=== PATIENT | male | born 1970 | race Caucasian/White ===

== ENCOUNTER 2018-02-10 04:04 | Inpatient (IN) ==
--- NOTE | 2018-02-10 04:53 | ED ---
HPI General Chief Complaint: Psychiatric Symptoms Stated Complaint: Psych eval Time Seen by Provider: 02/10/18 04:46 History of Present Illness HPI Narrative: Patient presents to the emergency department after a suicide attempt. States there was no known trigger but he wanted to kill himself. They put an exhaust pipe in the car window from 1030-330. Denies any AV hallucinations or headache or chest pain or abdominal pain or vomiting but does report shortness of breath and nausea. Patient brought in under [place] act. Related Data Home Medications Medication Instructions Recorded Confirmed No Known Home Medications 02/10/18 02/10/18 Allergies Allergy/AdvReac Type Severity Reaction Status Date / Time No Known Allergies Allergy Unverified 02/10/18 04:48 Review of Systems ROS: all other systems reviewed are negative [facility] Medical History Medical History Patient denies medical problems (Acute) Social History Social History Substance History: Active Abuse Second Hand Smoke Exposure: Yes Smoking Status: Current every day smoker Tobacco Type: Cigarettes How Often Do You Have a Drink Containing Alcohol: 2 to 4 times a month Recent Travel in [facility] within the Last 8 Weeks: No Recent Out of Country Travel within the Last 8 Weeks: No Immunization History Tetanus Immunization: <5 Years Hx Influenza Vaccine This Season: Yes Exam Narrative Exam Narrative: GENERAL: No acute distress. SKIN: Focused skin assessment warm/dry. HEAD: Atraumatic. Normocephalic. EYES: Pupils equal and round. No scleral icterus. No injection or drainage. ENT: No nasal bleeding or discharge. Mucous membranes pink and moist. NECK: Trachea midline. No JVD. CARDIOVASCULAR: Regular rate and rhythm. No murmur appreciated. RESPIRATORY: No accessory muscle use. Clear to auscultation. Breath sounds equal bilaterally. GASTROINTESTINAL: Abdomen soft, non-tender, nondistended. Hepatic and splenic margins not palpable. MUSCULOSKELETAL: No obvious deformities. No clubbing. No cyanosis. No edema. NEUROLOGICAL: Awake and alert. No obvious cranial nerve deficits. Motor grossly within normal limits. Normal speech. PSYCHIATRIC: Appropriate mood and affect; insight and judgment normal. Course Initial Documented Vital Signs Temperature 98.2 F 02/10/18 04:17 Pulse Rate 60 02/10/18 04:17 Respiratory Rate 20 02/10/18 04:17 Blood Pressure 139/61 02/10/18 04:17 Pulse Oximetry 98 02/10/18 04:17 Last Documented Vital Signs Temperature 97.2 F L 02/13/18 05:47 Pulse Rate 53 L 02/13/18 05:47 Respiratory Rate 17 02/13/18 05:47 Blood Pressure 107/51 L 02/13/18 05:47 Pulse Oximetry 97 02/13/18 05:47 Critical Care Time Critical Care Time: Yes Total Critical Care Time: 30 Attestation: Aggregate critical care time was 30 minutes. Time to perform other separately billable procedures was not included in the critical care time. My time did not include minutes spent treating any other patients simultaneously or on activities that did not directly contribute to the patient's treatment. The services I provided to this patient were to treat and/or prevent clinically significant deterioration that could result in: respiratory failure, , increased morbidity from carbon monoxide poisoning. I provided critical care services requiring my management, as noted below: Chart data review, documentation time, medication orders and management, vital sign assessments/reviewing monitor data, ordering and reviewing lab tests, ordering and interpreting/reviewing x-rays and diagnostic studies, care of the patient and discussion of the patient with the admitting physicians. Medical Decision Making MDM Narrative Medical decision making narrative: Patient presents to the ER after suicidal ideation. Patient placed on oxygen, IV access obtained, and patient was also placed on manager monitoring continuous pulse ox. EKG, labs, potential consulted. Poison control recommends placing patient on oxygen, check an ABG, and the normal psych/suicidal labs, repeat abg 4 hours after the first one (approx 9AM) , and place on 100% O2. Patient placed on a non-rebreather. Patient also given 1L IV NS. Labs show normal CBC, ABG: O2 saturation 86%, carboxyhemoglobin 12.4, elevated CK and alcohol level Head CT: no acute findings 0658: Patient to be signed out to Dr. Walden, the oncoming doctor. Check cxr , repeat abg at 0900, psych evaluation. Medical Screen Exam Complete: Yes Emergency Medical Condition: Yes Differential Diagnosis Differential Diagnosis: Toxic Ingestion, carbon monoxide poisoning Lab Data Result diagrams: 02/10/18 05:05 02/10/18 05:05 Lab Results 02/10/18 02/10/18 02/10/18 Range/Units 04:53 05:05 05:05 WBC 8.4 (4.0-11.0) th/mm3 RBC 4.81 (4.50-5.90) mil/mm3 Hgb 14.9 (13.0-17.0) gm/dL Hct 44.4 (39.0-51.0) % MCV 92.3 (80.0-100.0) fL MCH 31.0 (27.0-34.0) pg MCHC 33.6 (32.0-36.0) % RDW 13.2 (11.6-17.2) % Plt Count 197 (150-450) th/mm3 MPV 9.4 (7.0-11.0) fL Neut % (Auto) 59.8 (16.0-70.0) % Lymph % (Auto) 28.6 (9.0-44.0) % [place] % (Auto) 7.9 (0.0-8.0) % Eos % (Auto) 2.7 (0.0-4.0) % Baso % (Auto) 1.0 (0.0-2.0) % Neut # (Auto) 5.0 (1.8-7.7) th/mm3 Lymph # (Auto) 2.4 (1.0-4.8) th/mm3 [place] # (Auto) 0.7 (0.0-0.9) th/mm3 Eos # (Auto) 0.2 (0.0-0.4) th/mm3 Baso # (Auto) 0.1 (0.0-0.2) th/mm3 WBC Differential . Differential Comment Auto diff final Puncture Site Right radial Patient Temperature 98.6 O2 Saturation 86 L* (90-100) % ABG pH 7.37 L (7.380-7.420) ABG pCO2 41 (38-42) mmHg ABG pO2 189 H (61-120) mmHg ABG HCO3 24 (22-26) mmol/L ABG O2 Content 17.3 (12.0-20.0) Vol % ABG Base Excess -1.0 (-2-2) mmol/L ABG Methemoglobin 0.9 (0-2) % Jose D Test Present Hemoglobin 14.0 (12.0-16.0) G/DL Carboxyhemoglobin 12.4 H* (0-4) % O2 Delivery Device Nasal cannula Liter Flow 3.00 L/M Inspired O2 % Critical Value Yes Sodium 144 (136-145) meq/L Potassium 3.7 (3.5-5.1) meq/L Chloride 111 H (98-107) meq/L Carbon Dioxide 25.3 (21.0-32.0) meq/L Anion Gap 8 (5-15) meq/L BUN 12 (7-18) mg/dL Creatinine 1.14 (0.60-1.30) mg/dL Estimated GFR 69 L (>89) mL/min Random Glucose 95 (74-106) mg/dL Calcium 7.8 L (8.5-10.1) mg/dL Total Bilirubin 0.2 (0.2-1.0) mg/dL AST 27 (15-37) U/L ALT 28 (12-78) U/L Alkaline Phosphatase 69 (45-117) U/L Total Creatine Kinase (39-308) U/L CK-MB (CK-2) (0.5-3.6) ng/mL CK-MB (CK-2) % (0.0-4.0) % Troponin I (0.02-0.05) ng/mL Total Protein 6.7 (6.4-8.2) g/dL Albumin 3.3 L (3.4-5.0) g/dL TSH 1.550 (0.358-3.740) uIU/mL Urine Color (Yellw/Straw) Urine Clarity (Clear) Urine pH (5.0-8.5) Ur Specific [place] (1.002-1.035) Urine Protein (Neg-Trace) mg/dL Urine Glucose (UA) (Negative) mg/dL Urine Ketones (Negative) mg/dL Urine Occult Blood (Negative) Urine Nitrate (Negative) Urine Bilirubin (Negative) Urine Urobilinogen (Less than 2) mg/dL Ur Leukocyte Esterase (Negative) Urine RBC (0-3) /hpf Urine WBC (0-5) /hpf Micro UA Comment Urine Culture Comments Salicylates (2.8-20.0) mg/dL Urine Opiates Screen (Neg) Acetaminophen Less than 2.0 L (10.0-30.0) mcg/mL Ur Barbiturates Screen (Neg) Ur Amphetamines Screen (Neg) U Benzodiazepines Scrn (Neg) Urine Cocaine Screen (Neg) U Cannabinoids Screen (Neg) Serum Alcohol 53 H (0-5) mg/dL 02/10/18 02/10/18 02/10/18 Range/Units 05:05 05:05 08:05 WBC (4.0-11.0) th/mm3 RBC (4.50-5.90) mil/mm3 Hgb (13.0-17.0) gm/dL Hct (39.0-51.0) % MCV (80.0-100.0) fL MCH (27.0-34.0) pg MCHC (32.0-36.0) % RDW (11.6-17.2) % Plt Count (150-450) th/mm3 MPV (7.0-11.0) fL Neut % (Auto) (16.0-70.0) % Lymph % (Auto) (9.0-44.0) % [place] % (Auto) (0.0-8.0) % Eos % (Auto) (0.0-4.0) % Baso % (Auto) (0.0-2.0) % Neut # (Auto) (1.8-7.7) th/mm3 Lymph # (Auto) (1.0-4.8) th/mm3 [place] # (Auto) (0.0-0.9) th/mm3 Eos # (Auto) (0.0-0.4) th/mm3 Baso # (Auto) (0.0-0.2) th/mm3 WBC Differential Differential Comment Puncture Site Patient Temperature O2 Saturation (90-100) % ABG pH (7.380-7.420) ABG pCO2 (38-42) mmHg ABG pO2 (61-120) mmHg ABG HCO3 (22-26) mmol/L ABG O2 Content (12.0-20.0) Vol % ABG Base Excess (-2-2) mmol/L ABG Methemoglobin (0-2) % Jose D Test Hemoglobin (12.0-16.0) G/DL Carboxyhemoglobin (0-4) % O2 Delivery Device Liter Flow L/M Inspired O2 % Critical Value Sodium (136-145) meq/L Potassium (3.5-5.1) meq/L Chloride (98-107) meq/L Carbon Dioxide (21.0-32.0) meq/L Anion Gap (5-15) meq/L BUN (7-18) mg/dL Creatinine (0.60-1.30) mg/dL Estimated GFR (>89) mL/min Random Glucose (74-106) mg/dL Calcium (8.5-10.1) mg/dL Total Bilirubin (0.2-1.0) mg/dL AST (15-37) U/L ALT (12-78) U/L Alkaline Phosphatase (45-117) U/L Total Creatine Kinase 326 H (39-308) U/L CK-MB (CK-2) 1.3 (0.5-3.6) ng/mL CK-MB (CK-2) % 0.4 (0.0-4.0) % Troponin I Less than 0.02 L (0.02-0.05) ng/mL Total Protein (6.4-8.2) g/dL Albumin (3.4-5.0) g/dL TSH (0.358-3.740) uIU/mL Urine Color (Yellw/Straw) Urine Clarity (Clear) Urine pH (5.0-8.5) Ur Specific [place] (1.002-1.035) Urine Protein (Neg-Trace) mg/dL Urine Glucose (UA) (Negative) mg/dL Urine Ketones (Negative) mg/dL Urine Occult Blood (Negative) Urine Nitrate (Negative) Urine Bilirubin (Negative) Urine Urobilinogen (Less than 2) mg/dL Ur Leukocyte Esterase (Negative) Urine RBC (0-3) /hpf Urine WBC (0-5) /hpf Micro UA Comment Urine Culture Comments Salicylates 4.1 (2.8-20.0) mg/dL Urine Opiates Screen Neg (Neg) Acetaminophen (10.0-30.0) mcg/mL Ur Barbiturates Screen Neg (Neg) Ur Amphetamines Screen Neg (Neg) U Benzodiazepines Scrn Neg (Neg) Urine Cocaine Screen Neg (Neg) U Cannabinoids Screen Pos H (Neg) Serum Alcohol (0-5) mg/dL 02/10/18 02/10/18 Range/Units 08:05 09:10 WBC (4.0-11.0) th/mm3 RBC (4.50-5.90) mil/mm3 Hgb (13.0-17.0) gm/dL Hct (39.0-51.0) % MCV (80.0-100.0) fL MCH (27.0-34.0) pg MCHC (32.0-36.0) % RDW (11.6-17.2) % Plt Count (150-450) th/mm3 MPV (7.0-11.0) fL Neut % (Auto) (16.0-70.0) % Lymph % (Auto) (9.0-44.0) % [place] % (Auto) (0.0-8.0) % Eos % (Auto) (0.0-4.0) % Baso % (Auto) (0.0-2.0) % Neut # (Auto) (1.8-7.7) th/mm3 Lymph # (Auto) (1.0-4.8) th/mm3 [place] # (Auto) (0.0-0.9) th/mm3 Eos # (Auto) (0.0-0.4) th/mm3 Baso # (Auto) (0.0-0.2) th/mm3 WBC Differential Differential Comment Puncture Site Right radial Patient Temperature 98.6 O2 Saturation 95 (90-100) % ABG pH 7.42 (7.380-7.420) ABG pCO2 40 (38-42) mmHg ABG pO2 115 (61-120) mmHg ABG HCO3 25 (22-26) mmol/L ABG O2 Content 18.1 (12.0-20.0) Vol % ABG Base Excess 1.4 (-2-2) mmol/L ABG Methemoglobin 1.0 (0-2) % Jose D Test Present Hemoglobin 13.4 (12.0-16.0) G/DL Carboxyhemoglobin 2.4 (0-4) % O2 Delivery Device Room air Liter Flow L/M Inspired O2 21 % Critical Value No Sodium (136-145) meq/L Potassium (3.5-5.1) meq/L Chloride (98-107) meq/L Carbon Dioxide (21.0-32.0) meq/L Anion Gap (5-15) meq/L BUN (7-18) mg/dL Creatinine (0.60-1.30) mg/dL Estimated GFR (>89) mL/min Random Glucose (74-106) mg/dL Calcium (8.5-10.1) mg/dL Total Bilirubin (0.2-1.0) mg/dL AST (15-37) U/L ALT (12-78) U/L Alkaline Phosphatase (45-117) U/L Total Creatine Kinase (39-308) U/L CK-MB (CK-2) (0.5-3.6) ng/mL CK-MB (CK-2) % (0.0-4.0) % Troponin I (0.02-0.05) ng/mL Total Protein (6.4-8.2) g/dL Albumin (3.4-5.0) g/dL TSH (0.358-3.740) uIU/mL Urine Color Yellow (Yellw/Straw) Urine Clarity Clear (Clear) Urine pH 6.0 (5.0-8.5) Ur Specific [place] 1.012 (1.002-1.035) Urine Protein Negative (Neg-Trace) mg/dL Urine Glucose (UA) Negative (Negative) mg/dL Urine Ketones Negative (Negative) mg/dL Urine Occult Blood Small H (Negative) Urine Nitrate Negative (Negative) Urine Bilirubin Negative (Negative) Urine Urobilinogen Less than 2 (Less than 2) mg/dL Ur Leukocyte Esterase Negative (Negative) Urine RBC 2 (0-3) /hpf Urine WBC 2 (0-5) /hpf Micro UA Comment Culture not ind Urine Culture Comments Culture not ind Salicylates (2.8-20.0) mg/dL Urine Opiates Screen (Neg) Acetaminophen (10.0-30.0) mcg/mL Ur Barbiturates Screen (Neg) Ur Amphetamines Screen (Neg) U Benzodiazepines Scrn (Neg) Urine Cocaine Screen (Neg) U Cannabinoids Screen (Neg) Serum Alcohol (0-5) mg/dL Imaging Data Radiologist's impression: Head CT 02/10/18 05:32 CONCLUSION: No acute abnormality. . Chest X-Ray 02/10/18 06:57 CONCLUSION: No acute cardiopulmonary abnormality is identified. ECG Data Attestation: I personally reviewed and interpreted this ECG as follows: (Sinus bradycardia, rate 52, normal axis, T-wave inversion in V1 and V2) Discharge Plan Discharge Disposition Patient Disposition: 30 Still Patient Discharge Condition Condition: Stable Discharge Details Diagnosis: Suicide attempt, Carbon monoxide poisoning Physicians Team ED Provider: Ghislaine Pizarro Primary Care Provider: Primary Care Hannah Felder Attending Provider: Anthony Harrison Discharge Interventions Interventions: ED Discharge Assessment Last Done: 02/10/18 16:41 Status ED Status: Left Department Discharge Information Discharge Date/Time: 02/10/18 16:42
[2018-02-10 05:07] LABS: ABG PCO2 41 mmHg (38-42); ABG PO2 189 mmHg (61-120)
[2018-02-10 05:12] LABS: Baso # (Auto) 0.1 th/mm3 (0.0-0.2); Eos # (Auto) 0.2 th/mm3 (0.0-0.4); Eos % (Auto) 2.7 % (0.0-4.0); Hematocrit 44.4 % (39.0-51.0); Hemoglobin 14.9 gm/dL (13.0-17.0); Lymph # (Auto) 2.4 th/mm3 (1.0-4.8); Lymph % (Auto) 28.6 % (9.0-44.0); Mean Corpuscular HGB Conc 33.6 % (32.0-36.0); Mean Corpuscular Volume 92.3 fL (80.0-100.0); Mean Platelet Volume 9.4 fL (7.0-11.0); Mono # (Auto) 0.7 th/mm3 (0.0-0.9); Mono % (Auto) 7.9 % (0.0-8.0); Neut % (Auto) 59.8 % (16.0-70.0); Platelet Count 197 th/mm3 (150-450); Red Blood Count 4.81 mil/mm3 (4.50-5.90); Red Cell Distribution Width 13.2 % (11.6-17.2); White Blood Count 8.4 th/mm3 (4.0-11.0)
[2018-02-10 05:39] LABS: Alanine Aminotransferase 28 U/L (12-78); Albumin 3.3 g/dL (3.4-5.0); Anion Gap 8 meq/L (5-15); Aspartate Aminotransferase 27 U/L (15-37); Blood Urea Nitrogen 12 mg/dL (7-18); Calcium 7.8 mg/dL (8.5-10.1); Carbon Dioxide 25.3 meq/L (21.0-32.0); Chloride 111 meq/L (98-107); Glomerular Filtration Rate 69 mL/min (>89); Glucose,Random 95 mg/dL (74-106); Potassium 3.7 meq/L (3.5-5.1); Sodium 144 meq/L (136-145)
[2018-02-10 05:42] LABS: Creatine Kinase 326 U/L (39-308)
[2018-02-10 05:49] LABS: Alcohol 53 mg/dL (0-5); Alkaline Phosphatase 69 U/L (45-117); Total Protein 6.7 g/dL (6.4-8.2)
[2018-02-10] MEDS ORDERED: Sod Chloride 0.9% Inj 1,000 ML IV.SIG ONE (05:49)
[2018-02-10 05:54] LABS: CKMB Percent 0.4 % (0.0-4.0); Creatine Kinase MB 1.3 ng/mL (0.5-3.6)
--- NOTE | 2018-02-10 06:34 | CT ---
EXAM DATE: 02/10/2018 6:20 AM EDT AGE/SEX: 47 years / Male INDICATIONS: Altered mental status. CLINICAL DATA: This is the patient's initial encounter. Patient reports that signs and symptoms have been present for 1 day and indicates a pain score of Nonresponsive. MEDICAL/SURGICAL HISTORY: None. None. RADIATION DOSE: 44.12 CTDI (mGy) COMPARISON: No prior exams available for comparison. TECHNIQUE: CT of the head without contrast. Using automated exposure control and adjustment of the mA and/or kV according to patient size, radiation dose was kept as low as reasonably achievable to ob tain optimal diagnostic quality images. DICOM format image data is available electronically for revi ew and comparison. FINDINGS: Cerebrum: The ventricles are normal for age. No evidence of midline shift, mass lesion, hemorrhage or acute infarction. No extraaxial fluid collections are seen. Posterior Fossa: The cerebellum and brainstem are intact. The 4th ventricle is midline. The cerebe llopontine angle is unremarkable. Extracranial: The visualized portion of the orbits is intact. Skull: The calvaria is intact. No evidence of skull fracture. CONCLUSION: No acute abnormality. . Electronically signed by: Bro Gonzales MD 02/10/2018 6:32 AM EDT
--- NOTE | 2018-02-10 07:33 | XR ---
EXAM DATE: 02/10/2018 7:18 AM EDT AGE/SEX: 47 years / Male INDICATIONS: Shortness of breath. CLINICAL DATA: This is the patient's initial encounter. Patient reports that signs and symptoms have been present for 1 day and indicates a pain score of 0/10. MEDICAL/SURGICAL HISTORY: . Patient states he tried to commit suicide last night. None. COMPARISON: No prior exams available for comparison. FINDINGS: Portable AP view of the chest demonstrates a normal-sized cardiac silhouette. No effusion, consolidat ion, or pneumothorax is identified. The bones and soft tissues demonstrate no acute finding. EKG line s overlie the patient. CONCLUSION: No acute cardiopulmonary abnormality is identified. Electronically signed by: Bro Lehman MD 02/10/2018 7:32 AM EDT
[2018-02-10 08:27] LABS: Bilirubin,Urine Negative (Negative); Clarity,Urine Clear (Clear); Color,Urine Yellow (Yellw/Straw); Glucose,Urine (UA) Negative (Negative); Leukocyte Esterase,Urine Negative (Negative); Nitrite,Urine Negative (Negative); Specific Gravity,Urine 1.012 (1.002-1.035)
[2018-02-10 08:33] LABS: Amphetamine Screen,Urine Neg (Neg); Barbiturate Screen,Urine Neg (Neg); Cannabinoid Screen,Urine Pos (Neg); Cocaine Screen,Urine Neg (Neg)
[2018-02-10 08:39] LABS: Opiate Screen,Urine Neg (Neg)
[2018-02-10 09:26] LABS: ABG Base Excess 1.4 mmol/L (-2-2); ABG PCO2 40 mmHg (38-42); ABG PO2 115 mmHg (61-120)
[2018-02-10] MEDS ORDERED: Haloperidol Inj 5 MG/ML Ampul ONE (13:00)
[2018-02-10] MEDS ORDERED: Haloperidol Inj 5 MG/ML Ampul IM ONE ×2 (13:01)
--- NOTE | 2018-02-10 13:23 | ED ---
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 Sweeney act states, "Ramon had a water hose connected to the vehicle exhaust. He called family and told him goodbye. When deputies found him he was not conscious. Patient states that he drank a lot of beer and this was not thinking and that is why he connected a hose to the vehicles exhaust. His alcohol level on arrival was 53. UDS is positive for marijuana. Chart reviewed and discussed with nursing staff. Patient is in room J108 of the emergency department. He is angry, combative, kicking the door and yelling. He continuously repeats, "24 hours of being here is over get me the fuck out of here." Patient is alert and oriented 4, motor and gait is normal. No abnormal thoughts. Insight and judgment is poor. Mood is angry and affect is confrontational. Unable to determine recent and remote memory due to his lack of cooperation. Social/Family/Educ : x 10 years. Daugther who is 22 and son who is 20 and they both live in [place]. He has a sister who he called yesterday when he connected the water hose to the vehicle. 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 No service. No prison or custodial in his past. No weapons in the home. At 1300 on 02/10/18 patient's behavior escalated. He would not cooperate with staff. He started to kick the door and made several attempts to escape. Patient was advised that if his behavior continued we would medicate him. A code dorothy was called as patient became more confrontational. He was medication with Haldol, Ativan and Benadryl. Patient is at moderate risk for decompensation. He will be admitted to inpatient locked area for further evaluation and treatment. Dx: Suicidal Attempt (Ping [place]) - Related Data Home Medications Medication Instructions Recorded Confirmed No Known Home Medications 02/10/18 02/10/18 Allergies Allergy/AdvReac Type Severity Reaction Status Date / Time No Known Allergies Allergy Unverified 02/10/18 04:48 Review of Systems All other systems reviewed negative except as stated in HPI [facility] - History History Provided By: Patient, Law Enforcement - Medical History Medical History: Medical History (Last Updated 02/10/18 @ 04:19 by Zita Jennings) Patient denies medical problems - Tobacco History Second Hand Smoke Exposure: Yes Tobacco Use In Past 30 Days: Yes Smoking Status: Current every day smoker Tobacco Type: Cigarettes - Alcohol History How Often Do You Have a Drink Containing Alcohol: 2 to 4 times a month - Substance Use History Substance History: Active Abuse - Substance Use Type Marijuana Status: Active Route Used: Inhalation - Travel History Recent Travel in the [facility] Within the Last 8 Weeks: No Recent Travel Out of the Country Within the Last 8 Weeks: No - Immunization History Tetanus Immunization: <5 Years Hx Influenza Vaccine This Season: Yes Psychiatric History - Psychiatric History Psychiatric Treatment History: Denies Previous Treatment - Psychiatric History Patient has not been under psychiatric care in the past. (Ping [place]) Physical Exam - General Limitations: no limitations General appearance: alert - Head Head exam: atraumatic - Eye Eye exam: Present: normal appearance - ENT ENT exam: Present: normal exam - Neck Neck exam: Present: normal inspection Mental Status Examination Appearance: Appropriate, Other (electrician front - dirty hands ) Consciousness: Alert, Other (loud, foul language, confrontational) Orientation: x4 Motor Activity: Normal gait Speech: Unremarkable Language: Perseveration (Yelling " I did not try to kill myself." ) Fund of Knowledge: Adequate Attention and Concentration: Easily distracted Memory: Unremarkable Mood: Angry Affect: Other (confrontational , violent ) Thought Process & Associations: Linear Thought Content: Preoccupations (with being discharged. ) Hallucination Type: None Delusion Type: None Suicidal Ideation: No Suicidal Plan: No Suicidal Intention: No Homicidal Ideation: No Homicidal Plan: No Homicidal Intention: No Insight: Poor Judgment: Impulsive Initial Documented Vital Signs Temperature 98.2 F 02/10/18 04:17 Pulse Rate 60 02/10/18 04:17 Respiratory Rate 20 02/10/18 04:17 Blood Pressure 139/61 02/10/18 04:17 Pulse Oximetry 98 02/10/18 04:17 Last Documented Vital Signs Temperature 98.0 F 02/10/18 04:21 Pulse Rate 76 02/10/18 07:17 Respiratory Rate 18 02/10/18 07:17 Blood Pressure 141/75 H 02/10/18 07:17 Pulse Oximetry 100 02/10/18 07:17 MDM - Psych - Diagnosis (1) Suicide attempt Status: Acute - Differential Diagnosis Likely: depression - Medical Records Attestation: I reviewed the patient's medical records. - Lab Data Attestation: I reviewed the patient's lab results. Result diagrams: 02/10/18 05:05 02/10/18 05:05 - MDM Narrative Medical decision making narrative: Patient is a 47-year-old male who was placed under Sweeney act by [facility]'s department. Patient placed a water hose and connected to the vehicle exhaust. He called his family to tell them he was saying goodbye. The deputies found and he was not conscious. Patient's carboxyhemoglobin was monitored in the ER and they feel at this point that he is medically stable. Patient was transferred from the emergency room to [facility]. He displayed a quite a bit of anger and became escalated. Efforts to hold a conversation with him were unsuccessful. Efforts to answers questions were unsuccessful. Patient began kicking the door that exits the unit and slamming the doors to the individual rooms. A code garza was called and patient was administered an emergency treatment med. Patient is at moderate risk for self-harm or harming others. Will admit patient to inpatient locked unit for further evaluation and treatment. (Ping [place]) - Lab Data Lab Results 02/10/18 02/10/18 02/10/18 Range/Units 04:53 05:05 05:05 WBC 8.4 (4.0-11.0) th/mm3 RBC 4.81 (4.50-5.90) mil/mm3 Hgb 14.9 (13.0-17.0) gm/dL Hct 44.4 (39.0-51.0) % MCV 92.3 (80.0-100.0) fL MCH 31.0 (27.0-34.0) pg MCHC 33.6 (32.0-36.0) % RDW 13.2 (11.6-17.2) % Plt Count 197 (150-450) th/mm3 MPV 9.4 (7.0-11.0) fL Neut % (Auto) 59.8 (16.0-70.0) % Lymph % (Auto) 28.6 (9.0-44.0) % [place] % (Auto) 7.9 (0.0-8.0) % Eos % (Auto) 2.7 (0.0-4.0) % Baso % (Auto) 1.0 (0.0-2.0) % Neut # (Auto) 5.0 (1.8-7.7) th/mm3 Lymph # (Auto) 2.4 (1.0-4.8) th/mm3 [place] # (Auto) 0.7 (0.0-0.9) th/mm3 Eos # (Auto) 0.2 (0.0-0.4) th/mm3 Baso # (Auto) 0.1 (0.0-0.2) th/mm3 WBC Differential . Differential Comment Auto diff final Puncture Site Right radial Patient Temperature 98.6 O2 Saturation 86 L* (90-100) % ABG pH 7.37 L (7.380-7.420) ABG pCO2 41 (38-42) mmHg ABG pO2 189 H (61-120) mmHg ABG HCO3 24 (22-26) mmol/L ABG O2 Content 17.3 (12.0-20.0) Vol % ABG Base Excess -1.0 (-2-2) mmol/L ABG Methemoglobin 0.9 (0-2) % Jose D Test Present Hemoglobin 14.0 (12.0-16.0) G/DL Carboxyhemoglobin 12.4 H* (0-4) % O2 Delivery Device Nasal cannula Liter Flow 3.00 L/M Inspired O2 % Critical Value Yes Sodium 144 (136-145) meq/L Potassium 3.7 (3.5-5.1) meq/L Chloride 111 H (98-107) meq/L Carbon Dioxide 25.3 (21.0-32.0) meq/L Anion Gap 8 (5-15) meq/L BUN 12 (7-18) mg/dL Creatinine 1.14 (0.60-1.30) mg/dL Estimated GFR 69 L (>89) mL/min Random Glucose 95 (74-106) mg/dL Calcium 7.8 L (8.5-10.1) mg/dL Total Bilirubin 0.2 (0.2-1.0) mg/dL AST 27 (15-37) U/L ALT 28 (12-78) U/L Alkaline Phosphatase 69 (45-117) U/L Total Creatine Kinase (39-308) U/L CK-MB (CK-2) (0.5-3.6) ng/mL CK-MB (CK-2) % (0.0-4.0) % Troponin I (0.02-0.05) ng/mL Total Protein 6.7 (6.4-8.2) g/dL Albumin 3.3 L (3.4-5.0) g/dL TSH 1.550 (0.358-3.740) uIU/mL Urine Color (Yellw/Straw) Urine Clarity (Clear) Urine pH (5.0-8.5) Ur Specific Walker (1.002-1.035) Urine Protein (Neg-Trace) mg/dL Urine Glucose (UA) (Negative) mg/dL Urine Ketones (Negative) mg/dL Urine Occult Blood (Negative) Urine Nitrate (Negative) Urine Bilirubin (Negative) Urine Urobilinogen (Less than 2) mg/dL Ur Leukocyte Esterase (Negative) Urine RBC (0-3) /hpf Urine WBC (0-5) /hpf Micro UA Comment Urine Culture Comments Salicylates (2.8-20.0) mg/dL Urine Opiates Screen (Neg) Acetaminophen Less than 2.0 L (10.0-30.0) mcg/mL Ur Barbiturates Screen (Neg) Ur Amphetamines Screen (Neg) U Benzodiazepines Scrn (Neg) Urine Cocaine Screen (Neg) U Cannabinoids Screen (Neg) Serum Alcohol 53 H (0-5) mg/dL 02/10/18 02/10/18 02/10/18 Range/Units 05:05 05:05 08:05 WBC (4.0-11.0) th/mm3 RBC (4.50-5.90) mil/mm3 Hgb (13.0-17.0) gm/dL Hct (39.0-51.0) % MCV (80.0-100.0) fL MCH (27.0-34.0) pg MCHC (32.0-36.0) % RDW (11.6-17.2) % Plt Count (150-450) th/mm3 MPV (7.0-11.0) fL Neut % (Auto) (16.0-70.0) % Lymph % (Auto) (9.0-44.0) % [place] % (Auto) (0.0-8.0) % Eos % (Auto) (0.0-4.0) % Baso % (Auto) (0.0-2.0) % Neut # (Auto) (1.8-7.7) th/mm3 Lymph # (Auto) (1.0-4.8) th/mm3 [place] # (Auto) (0.0-0.9) th/mm3 Eos # (Auto) (0.0-0.4) th/mm3 Baso # (Auto) (0.0-0.2) th/mm3 WBC Differential Differential Comment Puncture Site Patient Temperature O2 Saturation (90-100) % ABG pH (7.380-7.420) ABG pCO2 (38-42) mmHg ABG pO2 (61-120) mmHg ABG HCO3 (22-26) mmol/L ABG O2 Content (12.0-20.0) Vol % ABG Base Excess (-2-2) mmol/L ABG Methemoglobin (0-2) % Jose D Test Hemoglobin (12.0-16.0) G/DL Carboxyhemoglobin (0-4) % O2 Delivery Device Liter Flow L/M Inspired O2 % Critical Value Sodium (136-145) meq/L Potassium (3.5-5.1) meq/L Chloride (98-107) meq/L Carbon Dioxide (21.0-32.0) meq/L Anion Gap (5-15) meq/L BUN (7-18) mg/dL Creatinine (0.60-1.30) mg/dL Estimated GFR (>89) mL/min Random Glucose (74-106) mg/dL Calcium (8.5-10.1) mg/dL Total Bilirubin (0.2-1.0) mg/dL AST (15-37) U/L ALT (12-78) U/L Alkaline Phosphatase (45-117) U/L Total Creatine Kinase 326 H (39-308) U/L CK-MB (CK-2) 1.3 (0.5-3.6) ng/mL CK-MB (CK-2) % 0.4 (0.0-4.0) % Troponin I Less than 0.02 L (0.02-0.05) ng/mL Total Protein (6.4-8.2) g/dL Albumin (3.4-5.0) g/dL TSH (0.358-3.740) uIU/mL Urine Color (Yellw/Straw) Urine Clarity (Clear) Urine pH (5.0-8.5) Ur Specific Walker (1.002-1.035) Urine Protein (Neg-Trace) mg/dL Urine Glucose (UA) (Negative) mg/dL Urine Ketones (Negative) mg/dL Urine Occult Blood (Negative) Urine Nitrate (Negative) Urine Bilirubin (Negative) Urine Urobilinogen (Less than 2) mg/dL Ur Leukocyte Esterase (Negative) Urine RBC (0-3) /hpf Urine WBC (0-5) /hpf Micro UA Comment Urine Culture Comments Salicylates 4.1 (2.8-20.0) mg/dL Urine Opiates Screen Neg (Neg) Acetaminophen (10.0-30.0) mcg/mL Ur Barbiturates Screen Neg (Neg) Ur Amphetamines Screen Neg (Neg) U Benzodiazepines Scrn Neg (Neg) Urine Cocaine Screen Neg (Neg) U Cannabinoids Screen Pos H (Neg) Serum Alcohol (0-5) mg/dL 02/10/18 02/10/18 Range/Units 08:05 09:10 WBC (4.0-11.0) th/mm3 RBC (4.50-5.90) mil/mm3 Hgb (13.0-17.0) gm/dL Hct (39.0-51.0) % MCV (80.0-100.0) fL MCH (27.0-34.0) pg MCHC (32.0-36.0) % RDW (11.6-17.2) % Plt Count (150-450) th/mm3 MPV (7.0-11.0) fL Neut % (Auto) (16.0-70.0) % Lymph % (Auto) (9.0-44.0) % [place] % (Auto) (0.0-8.0) % Eos % (Auto) (0.0-4.0) % Baso % (Auto) (0.0-2.0) % Neut # (Auto) (1.8-7.7) th/mm3 Lymph # (Auto) (1.0-4.8) th/mm3 [place] # (Auto) (0.0-0.9) th/mm3 Eos # (Auto) (0.0-0.4) th/mm3 Baso # (Auto) (0.0-0.2) th/mm3 WBC Differential Differential Comment Puncture Site Right radial Patient Temperature 98.6 O2 Saturation 95 (90-100) % ABG pH 7.42 (7.380-7.420) ABG pCO2 40 (38-42) mmHg ABG pO2 115 (61-120) mmHg ABG HCO3 25 (22-26) mmol/L ABG O2 Content 18.1 (12.0-20.0) Vol % ABG Base Excess 1.4 (-2-2) mmol/L ABG Methemoglobin 1.0 (0-2) % Jose D Test Present Hemoglobin 13.4 (12.0-16.0) G/DL Carboxyhemoglobin 2.4 (0-4) % O2 Delivery Device Room air Liter Flow L/M Inspired O2 21 % Critical Value No Sodium (136-145) meq/L Potassium (3.5-5.1) meq/L Chloride (98-107) meq/L Carbon Dioxide (21.0-32.0) meq/L Anion Gap (5-15) meq/L BUN (7-18) mg/dL Creatinine (0.60-1.30) mg/dL Estimated GFR (>89) mL/min Random Glucose (74-106) mg/dL Calcium (8.5-10.1) mg/dL Total Bilirubin (0.2-1.0) mg/dL AST (15-37) U/L ALT (12-78) U/L Alkaline Phosphatase (45-117) U/L Total Creatine Kinase (39-308) U/L CK-MB (CK-2) (0.5-3.6) ng/mL CK-MB (CK-2) % (0.0-4.0) % Troponin I (0.02-0.05) ng/mL Total Protein (6.4-8.2) g/dL Albumin (3.4-5.0) g/dL TSH (0.358-3.740) uIU/mL Urine Color Yellow (Yellw/Straw) Urine Clarity Clear (Clear) Urine pH 6.0 (5.0-8.5) Ur Specific Walker 1.012 (1.002-1.035) Urine Protein Negative (Neg-Trace) mg/dL Urine Glucose (UA) Negative (Negative) mg/dL Urine Ketones Negative (Negative) mg/dL Urine Occult Blood Small H (Negative) Urine Nitrate Negative (Negative) Urine Bilirubin Negative (Negative) Urine Urobilinogen Less than 2 (Less than 2) mg/dL Ur Leukocyte Esterase Negative (Negative) Urine RBC 2 (0-3) /hpf Urine WBC 2 (0-5) /hpf Micro UA Comment Culture not ind Urine Culture Comments Culture not ind Salicylates (2.8-20.0) mg/dL Urine Opiates Screen (Neg) Acetaminophen (10.0-30.0) mcg/mL Ur Barbiturates Screen (Neg) Ur Amphetamines Screen (Neg) U Benzodiazepines Scrn (Neg) Urine Cocaine Screen (Neg) U Cannabinoids Screen (Neg) Serum Alcohol (0-5) mg/dL
[2018-02-10] MEDS ORDERED: Acetaminophen 325 MG Tablet PO PRN (13:25)
[2018-02-10] MEDS ORDERED: Aluminum/Magnesium/Simethacone Susp 30 ML UDC PO PRN (13:25)
--- NOTE | 2018-02-10 16:02 | ECG ---
Date Performed: 02/10/2018 Time Performed: 04:44:17 PTAGE: 47 years EKG: SINUS BRADYCARDIA BORDERLINE ECG NO PREVIOUS TRACING DOCTOR: Jordan Arthur Interpretating Date/Time 02/10/2018 16:01:47
--- NOTE | 2018-02-11 10:49 | P.HPPSY ---
Provisional Diagnosis Admission Date: February 10, 2018 13:24 [place] I.: 1. Adjustment disorder with mixed disturbance of emotions and conduct Rule out mood disorder, behavioral disturbance in the setting of alcohol use disorder and/or personality disorder 2. Alcohol use, rule out use disorder 3. Cannabis abuse [place] II.: 1. Antisocial personality traits Competence Certification of Person's Competence To Provide Express and Informed Consent I have personally examined Ramon Quinteros, a person being served at [facility] on, February 11, 2018 1040. Express and informed consent means consent voluntarily given in writing, by a competent person, after sufficient explanation and disclosure of the subject matter involved to enable the person to make a knowing and willful decision without any element of force, fraud, deceit, duress, or other form of constraint or coercion. This person is 18 years of age or older, is not now known to be incompetent to consent to treatment with a guardian advocate, and does not have a health care surrogate or proxy currently making medical treatment decisions. I have found this person to be one of the following: [] Competent to provide express and informed consent, as defined above, for voluntary admission to this facility and is competent to provide express and informed consent for treatment. He/she has the consistent capacity to make well reasoned, willful, and knowing decisions concerning his or her medical or mental health treatment. The person fully and consistently understands the purpose of the admission for examination/placement and is fully capable of personally exercising all rights assured under [place] [] Incompetent to provide express and informed consent to voluntary admission, and this is incompetent to provide express and informed consent to treatment. The person must be transferred to involuntary status and a petition for a guardian advocate filed with the Circuit Court. [X] Refusing to provide express and informed consent to voluntary admission but is competent to provide express and informed consent for treatment. The person must be discharged or transferred to involuntary status. Form shall be completed within 24 hours of a person's arrival at the receiving facility and filed in the clinical record of each person: 1. Admitted on a voluntary basis 2. Permitted to provide express and informed consent to his/her own treatment 3. Allowed to transfer from involuntary to voluntary status 4. Prior to permitting a person to consent to his or her own treatment after having been previously found incompetent to consent to treatment. History of Present Illness Capacity: Has capacity (To consent for medications) Chief Complaint: Sweeney act History of Present Illness: Mr. Quinteros is a 47-year-old male with no reported past psychiatric history who presents under a Sweeney act by [facility]'s office alleging that the patient was found with a hose connected to his vehicle exhaust. He allegedly called family and told them goodbye. Patient was evaluated by the psychiatric nurse practitioner in the ED. patient was apparently fairly agitated in the ED and required Haldol, Ativan and Benadryl. Reviewing the electronic medical record, I see no previous psychiatric contact within our system. Patient seen and examined with nurse and counselor. Chart reviewed. Case discussed with nursing staff who reports patient related that he had a history of previous battery charges and was jailed in the mid 1999s. On my examination today, the patient presents with antisocial personality traits. He is clinically sober. He is vague and somewhat evasive regarding the circumstances of his presentation here. He insists that his presenting suicide attempt was gestural and "for attention." He will not say who his attention he was trying to obtain, nor will he provide any further substantive details regarding his thought process prior to the attempt. He insists that this attempt was entirely secondary to alcohol intoxication. He says that he had his car parked in a very conspicuous area, and he asks whether he would have done so if he had really wanted to hurt himself. Presently, the patient denies any suicidal or homicidal ideation, intent or plan, although it is unclear whether he is reliable to contract for safety. He denies any issues with mood, nor can I elicit any severe depressive or hypomanic/manic symptoms. Affect is somewhat irritable. He denies any audiovisual hallucinations. Denies any command auditory hallucinations to hurt self/others. No delusional material. 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 Remainder of the psychiatric ROS is negative. No acute physical complaints. Past psychiatric history: The patient denies a history of psychiatric diagnosis. He does say that he has seen a psychiatrist in the past as an adolescent. He denies a history of psychiatric admissions or suicide attempts. He denies a history of nonsuicidal self-injurious behavior. He denies a history of violent behavior. Family history: The patient denies a family history of serious mental illness or suicide. Chemical dependency history: The patient reports that he smokes cannabis most days of the week. He says that prior to admission was the first time he had had a drink since 2005. Nurse relates that patient was first jailed in 2005. Social history: The patient reports that he has been staying with a coworker. 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 He is with 2 children, a 22-year-old daughter and a 20-year-old son. He denies any history. Denies any legal history although see above. Denies any access to guns or firearms. He is a [employer]. He denies any history of abuse or mistreatment. Patient does say that we can reach out to his roommate Brandon for collateral information, but it is unclear if we will be able to obtain his telephone number. Counselor will work on this. Past medical history: Patient denies any past medical history. Medications: Patient takes no home medications. Allergies: Patient denies any allergies. - Inpatient Certification I certify that the inpatient services were ordered in accordance with Medicare regulations governing the order. This includes certification that hospital inpatient services are reasonable and necessary and in the case of services not specified as inpatient-only under 42 CFR 419.22(n), that they are appropriately provided as inpatient services in accordance to with the 2-midnight benchmark under 43 CFR 412.3(e) I certify that inpatient psychiatric hospital services are medically necessary. Evaluation and treatment and/or diagnostic testing are expected to improve the patient's condition. The patient needs on a daily basis, active treatment furnished directly by or requiring the supervision of inpatient psychiatric facility personnel. Estimated Total Length of Stay (Days): 3 (2-3) Plans for Post Hospital Care: Not yet determined Review of Systems All other systems reviewed negative except as stated in [facility] - History History Provided By: Medical Record - Medical History Medical History: Medical History (Last Updated 02/10/18 @ 04:19 by Zita Jennings) Patient denies medical problems - Tobacco History Second Hand Smoke Exposure: Yes Tobacco Use In Past 30 Days: Yes Smoking Status: Current every day smoker Tobacco Type: Cigarettes - Alcohol History How Often Do You Have a Drink Containing Alcohol: 2 to 4 times a month - Substance Use History Substance History: Active Abuse - Substance Use Type Marijuana Type: cannabis Status: Active Route Used: Inhalation Comment: refuses to cooperate with admission assessment questions. refuses to sign any consent forms. - Travel History Recent Travel in the [place] Within the Last 8 Weeks: No Recent Travel Out of the Country Within the Last 8 Weeks: No - Immunization History Tetanus Immunization: <5 Years Hx Influenza Vaccine This Season: Yes Quality Measures - Patient Strengths Patient's strengths (minimum of 2): Attending to basic needs. Verbally fluent. Medications and Allergies Active Medications: Active Medications Acetaminophen (Tylenol) 650 mg PO Q4H PRN PRN Reason: Pain 1-5 or Temp >101F Al Hydrox/Mg Hydrox/Simethicone (Mag-Al Plus Susp Liq) 30 ml PO Q6H PRN PRN Reason: DYSPEPSIA Nicotine (Habitrol 21 Mg Patch.24 Hr) 1 patch T-DERMAL DAILY [facility] Last Admin: 02/11/18 08:23 Dose: Not Given Patch Removal (Remove Old Patch) 1 each T-DERMAL DAILY [facility] Last Admin: 02/11/18 08:23 Dose: Not Given Allergies Allergy/AdvReac Type Severity Reaction Status Date / Time No Known Allergies Allergy Unverified 02/10/18 04:48 Home Medications Medication Instructions Recorded Confirmed Type No Known Home Medications 02/10/18 02/10/18 History Results - Labs CBC & Chem 7: 02/10/18 05:05 02/10/18 05:05 Labs: Admission labs reviewed. Significant findings included mildly elevated CK, mildly decreased GFR, and toxicological/alcohol findings. Exam Vital signs: Vital Signs 02/10/18 17:50 Pulse Rate 62 Respiratory Rate 20 Blood Pressure 134/81 Intake & Output 02/10/18 02/11/18 02/11/18 18:59 06:59 18:59 Weight 74.4 kg Other: Weight On Admission 74.4 kg Narrative: Physical examination completed by ED provider. On my examination today, the patient appears to be in no acute physical distress. No signs of intoxication or withdrawal noted. No other motor abnormalities noted. Labs and vital signs reviewed. Mental Status Examination Appearance: Appropriate Consciousness: Alert, Other (loud, foul language, confrontational) Orientation: x4 Motor Activity: Normal gait Speech: Unremarkable Language: Adequate Fund of Knowledge: Adequate Attention and Concentration: Adequate Memory: Unremarkable Mood: Irritable Affect: Irritable Thought Process & Associations: Linear Thought Content: Preoccupations (With discharge) Hallucination Type: None Delusion Type: None Suicidal Ideation: No (Unclear whether patient is reliable to contract for safety) Suicidal Plan: No Suicidal Intention: No Homicidal Ideation: No Homicidal Plan: No Homicidal Intention: No Insight: Poor Judgment: Impulsive Assessment and Plan - Assessment (1) Adjustment disorder with mixed disturbance of emotions and conduct Code(s): F43.25 - Adjustment disorder with mixed disturbance of emotions and conduct Status: Acute (2) Alcohol use Code(s): Z78.9 - Other specified health status Status: Acute (3) Cannabis abuse Code(s): F12.10 - Cannabis abuse, uncomplicated Status: Acute - Plan Plan: 47-year-old male with psychiatric history as detailed above who presents under a Sweeney act by law enforcement after suicide attempt. On my examination today, the patient insists that presenting attempt was gestural and mediated by alcohol use. Although there is a strong likelihood that this report is accurate , it is also possible that attempt was mediated by antisocial personality style and/or underlying mood disorder. It is presently unclear whether the patient represents an ongoing risk for self-harm. Inpatient observation, hopefully augmented with collateral information, will be helpful in this regard. Patient requires psychiatric hospitalization at this time to monitor for any ongoing impairments in safety. Admit inpatient. Patient declines to consent for voluntary admission. Continue to observe under Sweeney act. I have checked with paralegal instructor, and the Sweeney act will 02/13 at 0404. Patient retains capacity to consent for medications. Patient is not interested in any psychotropic medications at this time, and none will be prescribed. CIWA scale with Ativan for the management of any withdrawal. Thiamine and folate. Seizure precautions. Vitals every shift. Counselor to see. Collateral information. Disposition planning. Estimated length of stay: 2-3 days, depending on outcome of observation. Justification for Continued Inpatient Stay: See above Discharge Planning: Pending outcome of observation. Request Healthcare Surrogate/Guardian Advocate?: No
[2018-02-11] MEDS ORDERED: LORazepam 1 MG Tablet PO PRN (10:57)
--- NOTE | 2018-02-11 14:13 | P.CONPSY ---
Provisional Diagnosis Admission Date: February 10, 2018 13:24 [place] I.: 1. Adjustment disorder with mixed disturbance of emotions and conduct Rule out mood disorder, behavioral disturbance in the setting of alcohol use disorder and/or personality disorder 2. Alcohol use, rule out use disorder 3. Cannabis abuse [place] II.: 1. Antisocial personality traits History of Present Illness Service: Psychiatry Primary Care Provider: No Primary Care Physician History of Present Illness: Mr. Quinteros is a 47-year-old male with no reported past psychiatric history who presents under a Sweeney act by [facility]'s office alleging that the patient was found with a hose connected to his vehicle exhaust. He allegedly called family and told them goodbye. Patient was evaluated by the psychiatric nurse practitioner in the ED. patient was apparently fairly agitated in the ED and required Haldol, Ativan and Benadryl. Reviewing the electronic medical record, I see no previous psychiatric contact within our system. Patient seen and examined with nurse and counselor. Chart reviewed. Case discussed with nursing staff who reports patient related that he had a history of previous battery charges and was jailed in the mid 1999s. On my examination today, the patient presents with antisocial personality traits. He is clinically sober. He is vague and somewhat evasive regarding the circumstances of his presentation here. He insists that his presenting suicide attempt was gestural and "for attention." He will not say who his attention he was trying to obtain, nor will he provide any further substantive details regarding his thought process prior to the attempt. He insists that this attempt was entirely secondary to alcohol intoxication. He says that he had his car parked in a very conspicuous area, and he asks whether he would have done so if he had really wanted to hurt himself. Presently, the patient denies any suicidal or homicidal ideation, intent or plan, although it is unclear whether he is reliable to contract for safety. He denies any issues with mood, nor can I elicit any severe depressive or hypomanic/manic symptoms. Affect is somewhat irritable. He denies any audiovisual hallucinations. Denies any command auditory hallucinations to hurt self/others. No delusional material. 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 Remainder of the psychiatric ROS is negative. No acute physical complaints. Patient is a 47-year-old man, seen for second opinion. On psychiatric evaluation the patient is calm, cooperative, he stated that he does not want to continue his hospitalization. He says that this is a misunderstood and he was not trying to commit suicide. He says that he does not remember exactly the details of suicidal attempt, but he was drunk and he is in no was he was doing. Patient minimizes suicide attempt, minimizes depression, he denies suicidal and homicidal ideation, he denies visual and auditory hallucinations Review of Systems Constitutional: Reports anorexia, Denies body ache(s), Denies chills, Denies daytime sleepiness, Denies excessive sweating, Denies fatigue, Denies fever(s), Denies headache(s), Denies increased appetite, Denies lack of energy, Denies malaise, Denies night sweats, Denies weakness, Denies weight gain, Denies weight loss, Denies other PMFSH - History History Provided By: Medical Record - Medical History Medical History: Medical History (Last Updated 02/10/18 @ 04:19 by Zita Jennings) Patient denies medical problems - Tobacco History Second Hand Smoke Exposure: Yes Tobacco Use In Past 30 Days: Yes Smoking Status: Current every day smoker Tobacco Type: Cigarettes - Alcohol History How Often Do You Have a Drink Containing Alcohol: 2 to 4 times a month - Substance Use History Substance History: Active Abuse - Substance Use Type Marijuana Type: cannabis Status: Active Route Used: Inhalation Comment: Patient reports smoking cannabis daily. Patient denies current alcohol abuse. - Travel History Recent Travel in the [facility] Within the Last 8 Weeks: No Recent Travel Out of the Country Within the Last 8 Weeks: No - Immunization History Tetanus Immunization: <5 Years Hx Influenza Vaccine This Season: Yes Medications and Allergies Active Medications: Active Medications Acetaminophen (Tylenol) 650 mg PO Q4H PRN PRN Reason: Pain 1-5 or Temp >101F Al Hydrox/Mg Hydrox/Simethicone (Mag-Al Plus Susp Liq) 30 ml PO Q6H PRN PRN Reason: DYSPEPSIA Flumazenil ([place] Inj) 0.2 mg IV.PUSH Q1M PRN PRN Reason: OVERSEDATION Folic Acid (Folic Acid) 1 mg PO DAILY [facility] Stop: 02/17/18 08:59 Lorazepam (Ativan) 1 mg PO Q4H PRN PRN Reason: for CIWA 8-10 Lorazepam (Ativan) 2 mg PO Q2H PRN PRN Reason: for CIWA 11-14 Lorazepam (Ativan Inj) 2 mg IV.PUSH Q2H PRN PRN Reason: for CIWA 11-14 Lorazepam (Ativan Inj) 2 mg IV.PUSH Q1H PRN PRN Reason: for CIWA 15-20 Lorazepam (Ativan Inj) 2 mg IV.PUSH Q15M PRN PRN Reason: for CIWA > 20 Lorazepam (Ativan Inj) 1 mg IV.PUSH Q4H PRN PRN Reason: for CIWA 8-10 Multivitamins/Minerals (Theragran-M) 1 tab PO DAILY [facility] Stop: 02/17/18 08:59 Nicotine (Habitrol 21 Mg Patch.24 Hr) 1 patch T-DERMAL DAILY [facility] Last Admin: 02/11/18 08:23 Dose: Not Given Patch Removal (Remove Old Patch) 1 each T-DERMAL DAILY [facility] Last Admin: 02/11/18 08:23 Dose: Not Given Thiamine HCl (Vitamin B1) 100 mg PO DAILY [facility] Allergies Allergy/AdvReac Type Severity Reaction Status Date / Time No Known Allergies Allergy Unverified 02/10/18 04:48 Home Medications Medication Instructions Recorded Confirmed Type No Known Home Medications 02/10/18 02/10/18 History Exam Vital signs: Vital Signs 02/10/18 17:50 Pulse Rate 62 Respiratory Rate 20 Blood Pressure 134/81 Intake & Output 02/10/18 02/11/18 02/11/18 18:59 06:59 18:59 Weight 74.4 kg Other: Weight On Admission 74.4 kg Mental Status Examination Appearance: Appropriate Consciousness: Alert, Other (loud, foul language, confrontational) Orientation: x4 Motor Activity: Normal gait Speech: Unremarkable Language: Adequate Fund of Knowledge: Adequate Attention and Concentration: Adequate Memory: Unremarkable Mood: Irritable Affect: Irritable Thought Process & Associations: Linear Thought Content: Preoccupations (With discharge) Hallucination Type: None Delusion Type: None Suicidal Ideation: No (Unclear whether patient is reliable to contract for safety) Suicidal Plan: No Suicidal Intention: No Homicidal Ideation: No Homicidal Plan: No Homicidal Intention: No Insight: Poor Judgment: Impulsive Assessment and Plan - Assessment (1) Adjustment disorder with mixed disturbance of emotions and conduct Code(s): F43.25 - Adjustment disorder with mixed disturbance of emotions and conduct Status: Acute (2) Alcohol use Code(s): Z78.9 - Other specified health status Status: Chronic (3) Cannabis abuse Code(s): F12.10 - Cannabis abuse, uncomplicated Status: Chronic - Plan Plan: I have seen and examined this patient, I have reviewed documentation, I agree and concur with Dr. Harrison assessment and plan. Consult appreciated Justification for Continued Inpatient Stay: Continue admission Request Healthcare Surrogate/Guardian Advocate?: No
[2018-02-12] MEDS: Folic Acid 1 MG Tablet PO SCH (09:03)
[2018-02-12] MEDS: Multivitamin/Minerals Therapeutic Tablet PO SCH (09:03)
[2018-02-12] MEDS ORDERED: Haloperidol Inj 5 MG/ML Ampul IM STA (11:46)
--- NOTE | 2018-02-12 11:48 | P.PNPSY ---
Subjective Chief Complaint: Sweeney act Remarks: Patient seen and examined with nurse. Chart reviewed. Second opinion completed by Dr. Saxena. Case discussed with nursing staff. Patient is reportedly refusing labs and CIWA scale assessment. He told the nurse that his presenting suicide attempts were to seek attention from girlfriend. On my examination today, the patient continues to display extremely prominent antisocial personality traits. He is fixated on discharge. When I discuss collateral information from roommate Hernandez obtained by the counselor to the effect that patient made 2 separate attempts to end his life prior to admission , patient says that the second was because he had been talking with his sister, with whom he has recently been conversing about his mother's passing. He adamantly denies any suicidal ideation now and says he has to leave [facility] to get back to work. He refuses to allow me to contact sister or girlfriend (noting "she might say some stuff to keep me in here," although he insists that this report of hers would be untrue) or anyone else. When he learns that he will not be discharged today, he explodes, slams his door and begins banging on the doors in the [facility] [place]. He threatens this provider personally and also threatens staff generally, saying "someone is gonna fucking go to the ED." A Charles Bermeo was called, and the patient was medicated with Haldol, Ativan and Benadryl IM ETO at my order and placed in seclusion. Before the medications take effect, patient observed on camera pacing and trying to spit on camera in seclusion room. When I evaluate him for [id number] as required within one hour of initiation of restraints, he has calmed somewhat but remains quite volatile. We discuss behavioral expectations and conditions for discharge at a level appropriate to his current level of agitation. No evident side effects from medications. No physical complaints. Vital Signs Temp Pulse Resp BP Pulse Ox 02/12/18 05:41 98.0 F 51 L 16 122/75 99 02/11/18 17:17 98.7 F 72 16 126/75 100 02/11/18 17:00 98 F 84 18 131/91 H 02/11/18 13:00 98.7 F 68 17 139/81 Refused laboratories Review of Systems unobtainable due to mental condition Mental Status Examination Appearance: Appropriate Consciousness: Alert Orientation: x4 Motor Activity: Normal gait Speech: Other (Loud, angry) Language: Other ([place]) Fund of Knowledge: Adequate Attention and Concentration: Adequate Memory: Unremarkable Mood: Angry, Oppositional, Irritable Affect: Irritable, Labile Thought Process & Associations: Linear Thought Content: Preoccupations (With discharge) Hallucination Type: None Delusion Type: None Suicidal Ideation: No Suicidal Plan: No Suicidal Intention: No Homicidal Ideation: Yes (Threats to staff) Homicidal Plan: No Homicidal Intention: No Insight: Poor Judgment: Impulsive Assessment and Plan - Assessment (1) Adjustment disorder with mixed disturbance of emotions and conduct Code(s): F43.25 - Adjustment disorder with mixed disturbance of emotions and conduct Status: Acute (2) Alcohol use Code(s): Z78.9 - Other specified health status Status: Acute (3) Cannabis abuse Code(s): F12.10 - Cannabis abuse, uncomplicated Status: Acute - Plan Plan: Patient's behavior today is most consistent with antisocial personality style, and antisocial PD (along with substance use issues) is the suspected diagnosis. As such, patient is chronically unpredictable with respect to suicide/ violence and is unlikely to derive benefit from extended hospitalization. I did suggest to the patient prior to his explosive outburst that we could consider adding a psychopharmacologic agent for the management of irritability or impulsivity, but he is not interested in any sort of psychotropic medication management. I will retain the patient on the unit today given his outburst and given his current volatility, but we could consider discharge tomorrow if he is able to maintain behavioral control in the interval. Discontinue seclusion once safe to do so. Continue other care as ordered. Justification for Continued Inpatient Stay: Monitoring for impairment in safety. Discharge Planning: Pending further observation Request Healthcare Surrogate/Guardian Advocate?: No
[2018-02-12] MEDS ORDERED: Haloperidol Inj 5 MG/ML Ampul ONE (11:52)
[2018-02-13] MEDS: Folic Acid 1 MG Tablet PO SCH (08:24)
[2018-02-13] MEDS: Multivitamin/Minerals Therapeutic Tablet PO SCH (08:24)
--- NOTE | 2018-02-13 09:21 | P.DSPSY ---
Psychiatry Discharge Summary Inpatient Psychiatric care?: Yes Advance Directives: No Mental Health Advance Directive: No Health Care Proxy: No - Admission Admission Date: February 10, 2018 13:24 - Admission Diagnosis (1) Adjustment disorder with mixed disturbance of emotions and conduct Code(s): F43.25 - Adjustment disorder with mixed disturbance of emotions and conduct (2) Alcohol use Code(s): Z78.9 - Other specified health status (3) Cannabis abuse Code(s): F12.10 - Cannabis abuse, uncomplicated Brief History: Mr. Quinteros is a 47-year-old male with no reported past psychiatric history who presents under a [place] act by [facility]'s office alleging that the patient was found with a hose connected to his vehicle exhaust. He allegedly called family and told them goodbye. Patient was evaluated by the psychiatric nurse practitioner in the ED. patient was apparently fairly agitated in the ED and required Haldol, Ativan and Benadryl. Reviewing the electronic medical record, I see no previous psychiatric contact within our system. Patient seen and examined with nurse and counselor. Chart reviewed. Case discussed with nursing staff who reports patient related that he had a history of previous battery charges and was jailed in the mid 1999s. On my examination today, the patient presents with antisocial personality traits. He is clinically sober. He is vague and somewhat evasive regarding the circumstances of his presentation here. He insists that his presenting suicide attempt was gestural and "for attention." He will not say who his attention he was trying to obtain, nor will he provide any further substantive details regarding his thought process prior to the attempt. He insists that this attempt was entirely secondary to alcohol intoxication. He says that he had his car parked in a very conspicuous area, and he asks whether he would have done so if he had really wanted to hurt himself. Presently, the patient denies any suicidal or homicidal ideation, intent or plan, although it is unclear whether he is reliable to contract for safety. He denies any issues with mood, nor can I elicit any severe depressive or hypomanic/manic symptoms. Affect is somewhat irritable. He denies any audiovisual hallucinations. Denies any command auditory hallucinations to hurt self/others. No delusional material. 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 Remainder of the psychiatric ROS is negative. No acute physical complaints. Past psychiatric history: The patient denies a history of psychiatric diagnosis. He does say that he has seen a psychiatrist in the past as an adolescent. He denies a history of psychiatric admissions or suicide attempts. He denies a history of nonsuicidal self-injurious behavior. He denies a history of violent behavior. Family history: The patient denies a family history of serious mental illness or suicide. Chemical dependency history: The patient reports that he smokes cannabis most days of the week. He says that prior to admission was the first time he had had a drink since 2005. Nurse relates that patient was first jailed in 2005. Social history: The patient reports that he has been staying with a coworker. 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 He is with 2 children, a 22-year-old daughter and a 20-year-old son. He denies any history. Denies any legal history although see above. Denies any access to guns or firearms. He is a [employer]. He denies any history of abuse or mistreatment. Patient does say that we can reach out to his roommate Brandon for collateral information, but it is unclear if we will be able to obtain his telephone number. Counselor will work on this. Past medical history: Patient denies any past medical history. Medications: Patient takes no home medications. Allergies: Patient denies any allergies. Tobacco Use In Past 30 Days: Yes How Often Do You Have a Drink Containing Alcohol: 2 to 4 times a month Hospital Course: Patient was admitted to a locked, inpatient psychiatric unit. Appropriate precautions were in place throughout patient's hospital stay. Patient was seen and examined on the unit by psychiatry and also visited by counselor. Psychotropic medication management was offered to the patient, but he declined initiation of any scheduled psychotropic agents. There was no evidence of any ongoing suicidality on the inpatient unit. The patient displayed prominent antisocial personality traits including impulsivity, irritability, and failure to conform to social norms among others. 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 Alternative diagnoses including but not limited to mood disorder (such a bipolar mixed state), substance induced mood disorder, intermittent explosive disorder, adjustment disorder, psychiatric disorder related to general medical condition were considered as explanations for patient's presenting behavior and conduct on the unit, but in the end antisocial personality style and probable antisocial personality disorder with comorbid substance use issues is considered the most apt and cohesive diagnosis. On the day of discharge: Patient seen and examined with counselor. Chart reviewed. Case discussed with nursing staff. Following patient's outburst yesterday morning, he calmed and was released from seclusion in the early afternoon. He presented no behavioral problem thereafter. Case discussed with counselor who will provide the patient with referrals for outpatient mental health follow-up including anger management counseling as well as chemical dependency evaluation and treatment. On my examination today, the patient apologizes for his behavioral outburst yesterday. He explains that he was simply upset that he was not discharged as he has to get to work in order to fulfill his financial obligations. I endeavored to abstract the irritability and agitation displayed yesterday and use this to mobilize the patient to greater insight into his condition. The patient does concede that he struggles with anger chronically and has observed that it has caused him problems including in his relationship with his girlfriend. Although he does not want to pursue any pharmacologic management for this issue, he does agree that he would benefit from outpatient anger management counseling and agrees to follow- up for this purpose. He also vows to abstain from substances of abuse including alcohol going forward. He denies any suicidal or homicidal ideation, intent or plan presently. I can elicit no depressive or hypomanic/manic symptoms not better explained by his antisocial personality style. He denies any audiovisual hallucinations. I can elicit no delusional material. 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 He has no physical complaints. He is requesting discharge from the inpatient psychiatric unit today. Patient's antisocial personality style, recent attempts at self-harm and substance use issues confer chronic risk for self-harm going forward. However, patient's acute risk factors, including distress in the setting of reported argument with girlfriend and acute alcohol intoxication, have subsided, and the patient seems motivated at present to seek outpatient counseling to manage his anger and insists that he will abstain from substance use going forward. Patient's violence risk assessment largely mirrors the suicide risk assessment with chiefly chronic risk factors including antisocial personality style and substance use issues. Retaining the patient on the inpatient unit further would only serve to agitate and distress him to a greater degree, would be unlikely to yield additional risk reduction, and would likely deter him from seeking psychiatric help in the future. As a consequence, it is felt that the patient has maximized benefit from this inpatient psychiatric hospital stay. He will be discharged today with psychiatric follow-up as arranged by counselor. Patient is also to follow up with primary care. I have supported the patient in his stated desire for abstinence from substances. I have counseled the patient regarding warning signs for need to return to the psychiatric emergency room as part of a general safety plan. - Discharge Discharge Date: 02/13/18 - Discharge Diagnosis (1) Antisocial personality disorder Diagnosis: Principal Code(s): F60.2 - Antisocial personality disorder Status: Suspected (2) Alcohol use Diagnosis: Secondary Code(s): Z78.9 - Other specified health status Status: Chronic (3) Cannabis abuse Diagnosis: Secondary Code(s): F12.10 - Cannabis abuse, uncomplicated Status: Chronic Discharge Disposition: Home - Discharge Instructions Discharge Diet: Regular Diet Activities You Can Perform: Weight Bearing As Tolerat - Discharge Time > 30 minutes Mental Status Examination Appearance: Appropriate Consciousness: Alert Orientation: x4 Motor Activity: Normal gait, Other (No motor abnormalities noted. No signs of withdrawal noted.) Speech: Unremarkable Language: Adequate Fund of Knowledge: Adequate Attention and Concentration: Adequate Memory: Unremarkable Mood: Appropriate Affect: Appropriate Thought Process & Associations: Intact, Logical, Goal directed, Linear Thought Content: Appropriate Hallucination Type: None Delusion Type: None Suicidal Ideation: No Suicidal Plan: No Suicidal Intention: No Homicidal Ideation: No Homicidal Plan: No Homicidal Intention: No Mental Status Exam Remarks: Insight is somewhat improved versus admission although still likely fair to poor. Judgment is chronically impulsive as a consequence of antisocial personality style. Discharge/Advance Care Plan - Results Vital Signs: Last Vital Signs Temp 97.2 F L 02/13/18 05:47 Pulse 53 L 02/13/18 05:47 Resp 17 02/13/18 05:47 BP 107/51 L 02/13/18 05:47 Pulse Ox 97 02/13/18 05:47 Lab Results: Laboratory Results TSH 1.550 uIU/mL (0.358-3.740) 02/10/18 05:05 Urine Culture Comments Culture not ind 02/10/18 08:05 Summary of Procedures: None done. Imaging: ITS Impressions Head CT 02/10/18 05:32 CONCLUSION: No acute abnormality. . Chest X-Ray 02/10/18 06:57 CONCLUSION: No acute cardiopulmonary abnormality is identified. Pending Results: None - Medications Number of antipsychotic medications at discharge: 0 - Discharge Care Plan Goals to Promote Your Health: * To prevent worsening of your condition and complications * To maintain your health at the optimal level Directions to Meet Your Goals: Take your medications as prescribed Follow your dietary instruction Follow activity as directed Keep your appointments as scheduled Take your immunizations and boosters as scheduled If your symptoms worsen call your PCP, if no PCP go to Urgent Care Center or Emergency Room For 15/01 questions related to your inpatient stay or results of tests pending at discharge, please contact Dr. Anthony Harrison MD at Smoking is Dangerous to Your Health. Avoid second hand smoking
== END 2018-02-13 11:10 | disposition home or self-care (01) ==
LOC: NEPE 04:04 → NEDA 13:24 → H270 16:07
PROVIDERS: ADMIT Psychiatry & Neurology Psychiatry; ATTEND Psychiatry & Neurology Psychiatry